=== PATIENT | female | born 1970 | race Two or more races ===

== ENCOUNTER 2016-07-25 12:37 | Emergency (ER) | payer SELFPAY ==
[~2016-07-25] VITALS: Ht 162.6 cm; Wt 122.5 kg
[~2016-07-25 12:37] MED LIST: BENA20TA2 PO; CLON-418 PO; CLON0.1T14 PO; LEVO150T PO; METF500T4 PO
[2016-07-25] MEDS ORDERED: IBUPROFEN 600 MG TABLET PO ONE ×2 (13:59→14:00)
[2016-07-25 14:03] VITALS: BP 124/69
== END 2016-07-25 14:07 | disposition home or self-care (01) ==
LOC: ER 12:39
DX: M54.17 Radiculopathy, lumbosacral region (principal); E66.01 Morbid (severe) obesity due to excess calories; I10 Essential (primary) hypertension; E11.9 Type 2 diabetes mellitus without complications; E03.9 Hypothyroidism, unspecified; Z72.0 Tobacco use
CPT/HCPCS: 99283; A4606; Z7610